=== PATIENT | female | born 1980 | race Two or more races ===

== ENCOUNTER 2022-09-18 08:06 | Outpatient (CLI) | payer OTHER | END 2022-09-18 08:17 | disposition home or self-care (01) | LOC: RAD 08:06 | PROVIDERS: ATTEND General Practice | DX: R13.10 Dysphagia, unspecified (principal); E04.1 Nontoxic single thyroid nodule ==

== ENCOUNTER → 2022-10-17 | Outpatient (CLI) | payer OTHER | END | disposition home or self-care (01) | LOC: SONOGRAMA 08:48 | PROVIDERS: ATTEND Pathology Anatomic Pathology & Clinical Pathology | DX: C73 Malignant neoplasm of thyroid gland (principal); D44.0 Neoplasm of uncertain behavior of thyroid gland; D34 Benign neoplasm of thyroid gland; E04.9 Nontoxic goiter, unspecified; E04.1 Nontoxic single thyroid nodule; E07.9 Disorder of thyroid, unspecified ==

== ENCOUNTER 2023-12-10 13:12 | Outpatient (CLI) | payer OTHER | END 2023-12-10 13:24 | disposition home or self-care (01) | LOC: SONOGRAMA 13:12 | PROVIDERS: ATTEND Otolaryngology | DX: C73 Malignant neoplasm of thyroid gland (principal); R49.8 Other voice and resonance disorders; E03.9 Hypothyroidism, unspecified ==

== ENCOUNTER 2024-08-10 13:47 | Outpatient (CLI) | payer OTHER | END 2024-08-10 13:55 | disposition home or self-care (01) | LOC: SONOGRAMA 13:47 | PROVIDERS: ATTEND Internal Medicine | DX: E89.0 Postprocedural hypothyroidism (principal); C73 Malignant neoplasm of thyroid gland ==